=== PATIENT | male | born 1965 | race Caucasian/White ===

== ENCOUNTER 2017-12-07 07:28 | Emergency (ER) | payer OTHER ==
[~2017-12-07] VITALS: Ht 175.3 cm; Wt 120.2 kg
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
[2017-12-07] MEDS ORDERED: CYCL5TAB PO (09:06)
[2017-12-07] MEDS ORDERED: IBUP-1060 PO (09:06)
[2017-12-07 09:45] VITALS: BP 121/60
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
== END 2017-12-07 09:46 | disposition home or self-care (01) ==
LOC: ER 07:28
DX: S40.011A Contusion of right shoulder, initial encounter (principal); V53.9XXA Unspecified occupant of pick-up truck or van injured in collision with car, pick-up truck or van in traffic accident, initial encounter; Y93.89 Activity, other specified; Y92.410 Unspecified street and highway as the place of occurrence of the external cause; Y99.8 Other external cause status
CPT/HCPCS: 73030; 99284